=== PATIENT | male | born 2000 | race African-American/Black ===

== ENCOUNTER 2024-12-06 18:13 | Emergency (ER) | payer MEDICAID, SELFPAY ==
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
[2024-12-06 18:19] VITALS: BP 140/80; PULSE 100; O2SAT 100
[2024-12-06 19:13] VITALS: BP 116/69; PULSE 84; RESP 20; TEMP 36.5; O2SAT 99; BMI 30.7
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
[2024-12-07 02:07] VITALS: BP 115/68; PULSE 83; RESP 20; TEMP 36.8; O2SAT 98
[2024-12-07] MEDS: Cyclobenzaprine HCl 10 MG TABLET PO (02:18)
[2024-12-07] MEDS: Ibuprofen 600 MG TABLET PO (02:19)
[2024-12-07 02:21] VITALS: BP 115/68; PULSE 83; RESP 20; TEMP 36.8; O2SAT 98
== END 2024-12-07 02:21 | disposition home or self-care (01) ==
PROVIDERS: Emergency Provider Emergency Medicine
DX: M25.562 Pain in left knee (principal); R07.89 Other chest pain; T14.8XXA Other injury of unspecified body region, initial encounter; V43.52XA Car driver injured in collision with other type car in traffic accident, initial encounter; Y93.89 Activity, other specified; Y92.414 Local residential or business street as the place of occurrence of the external cause; Y99.9 Unspecified external cause status
CPT/HCPCS: 71046; 73562; 99283

== ENCOUNTER → 2024-12-06 19:15 | Outpatient (BNV) | payer SELFPAY | PROVIDERS: Visit Provider Specialist | DX: R07.89 Other chest pain (principal); M25.562 Pain in left knee | CPT/HCPCS: 71046; 73562 ==

== ENCOUNTER 2025-03-04 11:41 | Outpatient (REF) | payer MEDICAID, SELFPAY ==
--- OUTSIDE RECORDS SUMMARY | 2025-03-04 13:21 | XMS_ITS | Encounter Summary ---
Author Organization [employer] Address [address] [place] [address] Care Team Providers Care Access Clinician Name Role Phone Unavailable Primary Care Provider Unavailabl e Encounter Details Date Type Department Care Team (Late st Contact Info) Description 11/07/2024 Lab Requisition [facility] - Main Lab [address] [facility] [employer] [id number] Evans Womack DMD [address] [place] [address] Benign neoplasm of lip Social History Tobacco Use Types Packs/Day Years Used Date Smoking Tobacco: Never Assessed Sex and Gender Information Value Date Recorded Sex Assigned at Not on file Legal Sex Male 5:52 AM EST Gender Identity Not on file Sexual Orientation Not on file documented as of this encounter Plan of Treatment Not on file documented as of this encounter Procedures Procedure Name Priority Date/Time Associated Diagnosis Comments TISSUE EXAM Routine 11/06/2024 Benign neoplasm of lip documented in this encounter Results * Tissue Exam (11/06/2024) Final Diagnosis Lip, Lower, midline-biops y: -LOBULAR CAPILLARY HEMANGIOMA (PYOGENIC GRANULOMA) 11/08/2024 11:18 AM EST [facility] Clinical Information Midline lower lip 1.5 exophytic friable mass:rapid growth,granul jaciel vs CA 11/08/2024 11:18 AM EST [facility] Gross Description A. Lip, Lower, midline: Labeled with the patient's name and information . Received in formalin is a rubbery, lobular, 1.5 x 1.4 x 0.8 cm negrete-red to green polypoid portion of tissue which is inked blue at the base and sections. The cut surfaces are rubbery and hemorrhagic. The specimen is submitted in entirety in two cassettes, two pieces each. TS 11/08/2024 11:18 AM EST [facility] Disclaimer Unless otherwise specified, all tissue is 10% NB formalin fixed and paraffin embedded. 11/08/2024 11:18 AM EST [facility] Tissue Lower lip structure / Unknown 11/06/2024 11/07/2024 6:01 AM EST us Evans Womack DMD LAB PATHOLOGY ORDERABLES Sandra sosa Result [facility]) [facility] [address] [place] [address], documented in this encounter Visit Diagnoses Diagnosis Benign neoplasm of lip documented in this encounter
--- OUTSIDE RECORDS SUMMARY | 2025-03-04 13:21 | XMS_ITS | Clinical Summary ---
Author Organization [employer] [address] [facility] Address [address] [place] [address] Phone Care Team Providers Care Loan Consultant Name Role Phone Unavailable Primary Care Provider Unavailabl e Social History Tobacco Use Types Packs/Day Years Used Date Smoking Tobacco: Never Assessed Sex and Gender Information Value Date Recorded Sex Assigned at Not on file Legal Sex Male 5:52 AM EST Gender Identity Not on file Sexual Orientation Not on file Plan of Treatment Health Maintenance Due Date Last Done Comments HPV Vaccines (1 - Male 3-dos e series) 2017 Meningococcal B Vaccine (1 o f 2 - Standard) 2018 DTaP,Tdap,and Td Vaccines (1 - Tdap) 2021 Hepatitis B Vaccines (1 of 3 - 19+ 3-dose series) 2021 COVID-19 Vaccine (1 - 2023-2 5 season) 2024 Depression Screening 11/07/2024 HIV Screening 11/07/2024 Hepatitis C Screening 11/07/2024 Social Influencers of Health Screening 11/07/2024 Influenza Vaccine (Season Ended) 2025 HIB Vaccines Aged Out No longer eligi ble based on patient's age to complete this topic Hepatitis A Vaccines Aged Out No long er eligible based on patient's age to complete this topic IPV Vaccines Aged Out No longer eligi ble based on patient's age to complete this topic MMR Vaccines Aged Out No longer eligi ble based on patient's age to complete this topic Meningococcal ACWY Vaccine Aged Out N o longer eligible based on patient's age to complete this topic Pneumococcal Vaccine: Pediat rics (0 to 5 Years) and At-Risk Patients (6 to 64 Years) Aged Out No longer eligible b ased on patient's age to complete this topic RSV Immunization Patients Un jemal 20 months Aged Out No longer eligible b ased on patient's age to complete this topic Varicella Vaccines Aged Out No longer eligible based on patient's age to complete this topic Insurance MEDICAID - [place]
--- OUTSIDE RECORDS SUMMARY | 2025-03-04 13:21 | XMS_ITS | Encounter Summary ---
Author Organization [employer] Address [address] [facility] [address] [place] [address] Care Team Providers Care Security Clerk Name Role Phone Unavailable Primary Care Provider Unavailabl e Encounter Details Date Type Department Care Team (Late st Contact Info) Description 11/11/2024 Orders Only [facility] [address] [place] [address] Provider, MD James Social History Tobacco Use Types Packs/Day Years Used Date Smoking Tobacco: Every Day Cigarettes Smokeless Tobacco: Former Alcohol Use Standard Drinks/Week Comments Yes 0 (1 standard drink = 0.6 oz pur e alcohol) Sex and Gender Information Value Date Recorded Sex Assigned at Male 10/15/2024 11:14 AM EST Legal Sex Male 6:59 PM EDT Gender Identity Male 10/15/2024 11:14 AM EST Sexual Orientation Straight 10/15/2024 11 :14 AM EST documented as of this encounter Plan of Treatment Not on file documented as of this encounter Visit Diagnoses Not on filedocumented in this encounter
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
--- OUTSIDE RECORDS SUMMARY | 2025-03-04 13:21 | XMS_ITS | Encounter Summary ---
Author Organization [employer] Address [address] [place] [address] Care Team Providers Care Guidance Secretary Name Role Phone Unavailable Primary Care Provider Unavailabl e Encounter Details Date Type Department Care Team (Latest Contact Info) Description 03/04/2025 Travel Social History Tobacco Use Types Packs/Day Years [...] Diagnoses Not on filedocumented in this encounter Additional Health Concerns Assessment Noted Time PHQ-9 Depression Total Score: 0 03/04/20 25 10:37 AM EDT documented as of this encounter
--- OUTSIDE RECORDS SUMMARY | 2025-03-04 13:21 | XMS_ITS | Encounter Summary ---
Author Organization [employer] Address [address] [place] [address] Care Team Providers Care Savings Counselor Name Role Phone Unavailable Primary Care Provider Unavailabl e Reason for Referral * Consultation (Urgent) - Authorized Specialty Diagnoses / Procedures Referred By Contac t Referred To Contact Optometry Diagnoses Decreased visual acuity Irene Castro DO [address] [place] [address] Phone: tel: fax: [facility] [address] [place] [id number] Phone: tel: fax: Referral ID Status Reason Start Date Expiration Date Visits Requested Visits Authorized [id number] Authorized Consult and Treat 03/04/2025 03/04/2026 1 1 Encounter Details Date Type Department Care Team (Late st Contact Info) Description 03/04/2025 10:45 AM EDT Office Visit [facility] [address] [place] [id number] Irene Castro DO [address] [place] [address] Routine history and physical examination of adult (Primary Dx); Chronic migraine; Seasonal allergic rhinitis, unspecified trigger; Decreased visual acuity; BMI 38.0-38.9,adult; Encounter for immunization Social History Tobacco Use Types Packs/Day Years [...] AM EST documented as of this encounter Last Filed Vital Signs Vital Sign Reading Time Taken Comments Blood Pressure 130/80 03/04/2025 10:32 AM EDT Pulse 84 03/04/2025 10:32 AM EDT Temperature 37.1 ??C (98.7 ??F) 03/04/2025 10:32 AM E DT Respiratory Rate 18 03/04/2025 10:32 AM EDT Oxygen Saturation - - Inhaled Oxygen Concentration - - Weight 120 kg (264 lb 12.8 oz) 03/04/2025 10:32 AM EDT Height 177.2 cm (5' 9.75 ) 03/04/2025 10:32 AM E DT Body Mass Index 38.27 03/04/2025 10:32 AM EDT documented in this encounter Plan of Treatment Scheduled Orders Name Type Priority Associated Diagnoses Orde r Schedule T4, Free Lab Routine Routine history and physical examination of adult Seasonal allergic rhinitis, unspecified trigger BMI 38.0-38.9,adult Expected: 03/04/2025 (Approximate), Expires: 03/04/2026 Lipid Panel, Standard Lab Routine Routine history and physical examination of adult Seasonal allergic rhinitis, unspecified trigger BMI 38.0-38.9,adult Expected: 03/04/2025 (Approximate), Expires: 03/04/2026 TSH Lab Routine Routine history and physical examination of adult Seasonal allergic rhinitis, unspecified trigger BMI 38.0-38.9,adult Expected: 03/04/2025 (Approximate), Expires: 03/04/2026 Vitamin D, 25-Hydroxy, Total, Immunoassay Lab Routine Routine history and physical examination of adult Seasonal allergic rhinitis, unspecified trigger BMI 38.0-38.9,adult Expected: 03/04/2025 (Approximate), Expires: 03/04/2026 Hepatic Function Panel Lab Routine Routine history and physical examination of adult Seasonal allergic rhinitis, unspecified trigger BMI 38.0-38.9,adult Expected: 03/04/2025 (Approximate), Expires: 03/04/2026 Hemoglobin A1c Lab Routine Routine history and physical examination of adult Seasonal allergic rhinitis, unspecified trigger BMI 38.0-38.9,adult Expected: 03/04/2025 (Approximate), Expires: 03/04/2026 CBC Lab Routine Routine history and physical examination of adult Seasonal allergic rhinitis, unspecified trigger BMI 38.0-38.9,adult Expected: 03/04/2025, Expires: 03/04/2026 Basic Metabolic Panel Lab Routine Routine history and physical examination of adult Seasonal allergic rhinitis, unspecified trigger BMI 38.0-38.9,adult Expected: 03/04/2025 (Approximate), Expires: 03/04/2026 Varicella zoster antibody, IgG Lab Routine Routine history and physical examination of adult Seasonal allergic rhinitis, unspecified trigger BMI 38.0-38.9,adult Expected: 03/04/2025 (Approximate), Expires: 03/04/2026 Measles, Mumps, and Rubella (MMR) Antibodies??(IgG) Panel, Immune Status Lab Routine Routine history and physical examination of adult Seasonal allergic rhinitis, unspecified trigger BMI 38.0-38.9,adult Expected: 03/04/2025 (Approximate), Expires: 03/04/2026 Hepatitis B surface antigen, EIA Lab Routine Routine history and physical examination of adult Seasonal allergic rhinitis, unspecified trigger BMI 38.0-38.9,adult Expected: 03/04/2025 (Approximate), Expires: 03/04/2026 Chlamydia/N. Gonorrhoeae RNA, TMA, Urogenitial Microbiology Routine Routine history and physical examination of adult Seasonal allergic rhinitis, unspecified trigger BMI 38.0-38.9,adult Ordered: 03/04/2025 HIV-1/2 Antigen and Antibodies, Fourth Generation, with Reflexes Lab Routine Routine history and physical examination of adult Seasonal allergic rhinitis, unspecified trigger BMI 38.0-38.9,adult Expected: 03/04/2025 (Approximate), Expires: 03/04/2026 Hepatitis C Antibody with Reflex to HCV, RNA, Quantitative, Real-Time PCR Lab Routine Routine history and physical examination of adult Seasonal allergic rhinitis, unspecified trigger BMI 38.0-38.9,adult Expected: 03/04/2025, Expires: 03/04/2026 RPR (Monitor) with Reflex to??Titer Lab Routine Routine history and physical examination of adult Seasonal allergic rhinitis, unspecified trigger BMI 38.0-38.9,adult Expected: 03/04/2025, Expires: 03/04/2026 Hepatitis B Surface Antibody, Qualitative Lab Routine Routine history and physical examination of adult Seasonal allergic rhinitis, unspecified trigger BMI 38.0-38.9,adult Expected: 03/04/2025 (Approximate), Expires: 03/04/2026 Hepatitis A Antibody, Total Lab Routine Routine history and physical examination of adult Seasonal allergic rhinitis, unspecified trigger BMI 38.0-38.9,adult Expected: 03/04/2025 (Approximate), Expires: 03/04/2026 Hepatitis B Core Antibody, Total Lab Routine Routine history and physical examination of adult Seasonal allergic rhinitis, unspecified trigger BMI 38.0-38.9,adult Expected: 03/04/2025 (Approximate), Expires: 03/04/2026 T-SPOT??.TB Lab Routine Routine history and physical examination of adult Seasonal allergic rhinitis, unspecified trigger BMI 38.0-38.9,adult Expected: 03/04/2025 (Approximate), Expires: 03/04/2026 Scheduled Referrals Name Type Priority Associated Diagnoses Orde r Schedule Referral to [facility] Outpatient Referral Urgent Decreased visual acuity Expected: 03/04/2025 (Approximate), Expires: 03/04/2026 documented as of this encounter Visit Diagnoses Diagnosis Routine history and physical examination of adult- Primary Chronic migraine Seasonal allergic rhinitis, unspecified trigger Decreased visual acuity BMI 38.0-38.9,adult Encounter for immunization documented in this encounter Additional Health Concerns Assessment Noted Time PHQ-9 Depression Total Score: 0 03/04/20 25 10:37 AM EDT documented as of this encounter
[2025-03-04 13:49] LABS: Hematocrit 45.6 % (42.0-52.0); Hemoglobin 15.8 g/dl (14.0-18.0); Mean Corpuscular HGB Conc 34.6 g/dl (31.0-36.0); Mean Corpuscular Hemoglobin 29.9 pg (27.0-33.0); Mean Corpuscular Volume 86.4 fL (80.0-98.0); Mean Platelet Volume 11.9 fL (9.4-12.4); Platelet Count 156 X10*3/uL (160-400); Red Blood Count 5.28 X10*6/uL (4.60-5.80); Red Cell Distribution Width 12.5 % (11.0-16.0); White Blood Count 6.3 X10*3/uL (4.8-10.8)
[2025-03-04 13:58] LABS: Estimated Average Glucose 103 mg/dL; Hemoglobin A1C 134.7021 umol/L; Hemoglobin A1c % 5.2 % (<6.0); Total Hemoglobin (HGBA1C) 4067.8431 umol/L
[2025-03-04 14:43] LABS: CT PCR NOT DETECTED (Not Detect.); NG PCR NOT DETECTED (Not Detect.)
[2025-03-04 15:25] LABS: Anion Gap 11 (12-20)
[2025-03-04 15:55] LABS: Alanine Aminotransferase 27 U/L (0-40); Albumin Level 4.6 g/dL (3.5-5.0); Aspartate Amino Transferase 27 U/L (5-37); Bilirubin Direct 0.2 mg/dL (0.0-0.5); Bilirubin Total 0.6 mg/dL (0.0-1.0); Blood Urea Nitrogen 21 mg/dL (9-16); Calcium 9.5 mg/dL (8.4-10.2); Carbon Dioxide 28 mmol/L (22-29); Chloride 107 mmol/L (96-108); Cholesterol 185 mg/dL (<200); Estimated Glomerular Filt Rate > 60; Free T4 (Free Thyroxine) 0.92 ng/dL (0.71-1.85); Glucose Random 83 mg/dL (60-115); HDL Cholesterol 48 mg/dL (>40); LDL Cholesterol Calculated 119 mg/dL (<100); Potassium 4.6 mmol/L (3.3-5.1); Sodium 141 mmol/L (135-145); Thyroid Stimulating Hormone 1.44 uIU/mL (0.32-4.0); Total Protein 7.4 g/dL (6.5-8.0); Triglycerides 91 mg/dL (<150); Vitamin D 25-OH Total 16.3 ng/mL (>30)
[2025-03-04 18:04] LABS: Alkaline Phosphatase 67 U/L (39-117)
[2025-03-05 04:32] LABS: HBS Num1 0.95 mIU/mL (0-7.99); HBc Num1 0.26 S/CO (0.00-0.79); HBsAGNum1 0.41 S/CO (0.00-0.99); HIV AB/AG Nonreactive (Nonreactive); HIV Num 1 0.08 S/CO (0.00-0.99); Hepatitis B Core Antibody Nonreactive (Nonreactive); Hepatitis B Surface Antigen Negative (Negative); ~HepC Num1 0.07 S/CO (0.00-0.79); ~Hepatitis B Surface Antibody NONREACTIVE (Nonreactive); ~Hepatitis C Antibody Nonreactive (Nonreactive)
[2025-03-05 05:52] LABS: Varicella IgG Antibody <1.00 S/CO
[2025-03-05 05:59] LABS: Rubella IgG Antibody 1.65 Index; Rubeola IgG (Measles) <13.50 AU/mL
[2025-03-05 11:29] LABS: RPR Rapid Plasma Reagin NON-REACTIVE (NON-REACTIVE)
[2025-03-06 03:57] LABS: Hepatitis A Antibody IgG Nonreactive (Nonreactive); ~Hepatitis A Antibody IgG 0.24 S/CO (0.00-0.99)
[2025-03-07 12:44] LABS: TS Negative Control Passed; TS Panel A 93; TS Panel B 50; TS Positive Control Passed; TSpotTB Positive (Negative)
== END 2025-03-04 11:42 | disposition home or self-care (01) ==
LOC: HO.HHCL 11:41
PROVIDERS: Visit Provider Family Medicine
DX: Z00.00 Encounter for general adult medical examination without abnormal findings (principal); J30.2 Other seasonal allergic rhinitis; Z68.38 Body mass index [BMI] 38.0-38.9, adult
CPT/HCPCS: 80048; 80061; 80076; 82306; 83036; 84439; 84443; 85027; 86481; 86592; 86704; 86706; 86708; 86735; 86762; 86765; 86787; 86803; 87340; 87389; 87491; 87591

== ENCOUNTER 2025-03-25 08:59 | Outpatient (REF) | payer MEDICAID, SELFPAY ==
--- NOTE | ~2025-03-25 | XR_ITS ---
EXAMINATION: XR CHEST CLINICAL INFORMATION: Positive Tspot COMPARISON: 12/06/2024. TECHNIQUE: 2 views of the chest were obtained. FINDINGS: The cardiac, hilar, and mediastinal contours are normal. The lungs are clear bilaterally. There is no pneumothorax or pleural effusion. There is no focal osseous or soft tissue abnormality. XR/XR chest 2V IMPRESSION: Normal chest. Electronically signed by: Raghav Chilel MD 03/25/2025 09:29 AM EDT
--- OUTSIDE RECORDS SUMMARY | 2025-03-25 09:27 | XMS_ITS | Clinical Summary ---
Author Organization [employer] Address [address] [facility] [address] [place] [address] Care Team Providers Care Melter Caster Name Role Phone Irene Castro DO Primary Care Provider Allergies Active Allergy Reactions Criticality Noted Date Comments Ampicillin 11/06/2024 Aspirin Swelling 03/04/2025 Medications cholecalciferol (Vitamin D-3) 50 MCG (2000 UT) capsule Take 1 capsule (50 mcg) by mouth Once per day. 90 capsule 3 03/05/2025 Active Active Problems Problem Noted Date Diagnosed Date BMI 38.0-38.9,adult 03/04/2025 Allergic rhinitis 03/04/2025 Chronic migraine 03/04/2025 Encounters Date Type Department Care Team Description 03/11/2025 Telephone [facility] [address] [place] [phone] Irene Castro DO C Lab 03/05/2025 Refill [facility] [address] [place] [phone] Irene Castro DO 03/04/2025 10:45 AM EDT Office Visit [facility] [address] [place] [phone] Irene Castro DO Routine history and physical examination of adult (Primary Dx); Chronic migraine; Seasonal allergic rhinitis, unspecified trigger; Decreased visual acuity; BMI 38.0-38.9,adult; Encounter for immunization 03/04/2025 Travel 01/14/2025 Telephone [facility] [address] [place], [place] [phone] Manfred Green MD Results 01/03/2025 9:20 AM EST Office Visit [facility] [address] [place] [phone] Manfred Green MD Sternal pain (Primary Dx) from Last 3 Months Immunizations Immunization Administration Dates Next Due Tdap 03/04/2025 Family [...] 03/04/2025 10:32 AM EDT Plan of Treatment Upcoming Encounters Date Type Department Care Team (Late st Contact Info) Description 05/16/2025 1:00 PM EDT Office Visit C OPTOMETRY [address] [place] [address] Love Limon, OD [address] [place] [address] Health Maintenance Due Date Last Done Comments Dental Oral Exam 2002 Dental Prophylaxis 2002 Dental X-Ray: Bitewings 2002 Dental X-Ray: Full Mouth 2002 SDOH Screening 2002 Disability Screening 2002 Family Planning (PISQ) 2017 HPV Vaccines (1 - Male 3-dos e series) 2017 Meningococcal B Vaccine (1 o f 2 - Standard) 2018 Hepatitis B Vaccines (1 of 3 - 19+ 3-dose series) 2021 Pneumococcal Vaccine: Pediatrics (0 to 5 Years) and At-Risk Patients (6 to 49) Years) (1 of 2 - PCV) 2021 COVID-19 Vaccine (3 - 2023-2 5 season) 2024 04/06/2021, 03/06/2021 Influenza Vaccine (#1) 2024 Tobacco Screening 11/06/2025 11/06/2024 Alcohol/Substance Use Screening 03/04/2026 03/04/2025 Chlamydia and Gonorrhea Screening 03/04/2026 03/04/2025 Depression Screening 03/04/2026 03/04/2025, 03/04/2025 Lipid Panel 03/04/2030 03/04/2025 DTaP/Tdap/Td Vaccines (2 - T d or Tdap) 03/04/2035 03/04/2025 Zoster Vaccines (1 of 2) 2052 RSV Patients and Patients Aged 60 years or older (1 - 1-dose 75+ series) 2077 HIV Screening Completed 03/04/2025 Hepatitis C Screening Completed 03/04/2025 HIB Vaccines Aged Out No longer eligi [...] Procedure Name Priority Date/Time Associated Diagnosis Comments T-SPOT(R).TB Routine 03/04/2025 11:44 AM EDT Routine history and physical examination of adult Seasonal allergic rhinitis, unspecified trigger BMI 38.0-38.9,adult HEPATITIS B CORE AB TOTAL Routine 03/04/2025 11:44 AM EDT Routine history and physical examination of adult Seasonal allergic rhinitis, unspecified trigger BMI 38.0-38.9,adult HEPATITIS A ANTIBODY, TOTAL Routine 03/04/2025 11:44 AM EDT Routine history and physical examination of adult Seasonal allergic rhinitis, unspecified trigger BMI 38.0-38.9,adult HEPATITIS B SURFACE ANTIBODY, QUALITATIVE Routine 03/04/2025 11:44 AM EDT Routine history and physical examination of adult Seasonal allergic rhinitis, unspecified trigger BMI 38.0-38.9,adult RPR (MONITOR) W/REFL TITER Routine 03/04/2025 11:44 AM EDT Routine history and physical examination of adult Seasonal allergic rhinitis, unspecified trigger BMI 38.0-38.9,adult HEPATITIS C AB W/REFL TO HCV RNA, QN, PCR Routine 03/04/2025 11:44 AM EDT Routine history and physical examination of adult Seasonal allergic rhinitis, unspecified trigger BMI 38.0-38.9,adult HIV 1/2 ANTIGEN/ANTIBODY, FOURTH GENERATION W/RFL Routine 03/04/2025 11:44 AM EDT Routine history and physical examination of adult Seasonal allergic rhinitis, unspecified trigger BMI 38.0-38.9,adult HEPATITIS B SURFACE ANTIGEN, EIA Routine 03/04/2025 11:44 AM EDT Routine history and physical examination of adult Seasonal allergic rhinitis, unspecified trigger BMI 38.0-38.9,adult MEASLES, MUMPS, AND RUBELLA (MMR) AB (IGG) PANEL, IMMUNE STATUS Routine 03/04/2025 11:44 AM EDT Routine history and physical examination of adult Seasonal allergic rhinitis, unspecified trigger BMI 38.0-38.9,adult VARICELLA ZOSTER ANTIBODY, IGG Routine 03/04/2025 11:44 AM EDT Routine history and physical examination of adult Seasonal allergic rhinitis, unspecified trigger BMI 38.0-38.9,adult BASIC METABOLIC PANEL Routine 03/04/2025 11:44 AM EDT Routine history and physical examination of adult Seasonal allergic rhinitis, unspecified trigger BMI 38.0-38.9,adult CBC Routine 03/04/2025 11:44 AM EDT Routine history and physical examination of adult Seasonal allergic rhinitis, unspecified trigger BMI 38.0-38.9,adult HEMOGLOBIN A1C Routine 03/04/2025 11:44 AM EDT Routine history and physical examination of adult Seasonal allergic rhinitis, unspecified trigger BMI 38.0-38.9,adult HEPATIC FUNCTION PANEL Routine 03/04/2025 11:44 AM EDT Routine history and physical examination of adult Seasonal allergic rhinitis, unspecified trigger BMI 38.0-38.9,adult VITAMIN D,25-OH,TOTAL,IA Routine 03/04/2025 11:44 AM EDT Routine history and physical examination of adult Seasonal allergic rhinitis, unspecified trigger BMI 38.0-38.9,adult TSH Routine 03/04/2025 11:44 AM EDT Routine history and physical examination of adult Seasonal allergic rhinitis, unspecified trigger BMI 38.0-38.9,adult LIPID PANEL, STANDARD Routine 03/04/2025 11:44 AM EDT Routine history and physical examination of adult Seasonal allergic rhinitis, unspecified trigger BMI 38.0-38.9,adult T4, FREE Routine 03/04/2025 11:44 AM EDT Routine history and physical examination of adult Seasonal allergic rhinitis, unspecified trigger BMI 38.0-38.9,adult CHLAMYDIA/N. GONORRHOEAE RNA, TMA, UROGENITAL Routine 03/04/2025 11:44 AM EDT Routine history and physical examination of adult Seasonal allergic rhinitis, unspecified trigger BMI 38.0-38.9,adult XR STERNUM 2+ VIEWS Routine 01/03/2025 1 0:10 AM EST Sternal pain from Last 3 Months Results * (ABNORMAL) Vitamin D, 25-Hydroxy, Total, Immunoassay (03/04/2025 11:44 AM EDT) Vitamin D 25-OH Total 16.3(L) >30 ng/mL [facility] Comment: Health Based Reference Values*< 20 ??ng/mL ??Wugfimjey51-01 ng/mL ??Insufficient> 30 ??ng/mL ??Sufficient*Sourav ROWELL. N Engl J Med. 2007;357:266-280There is no well-established upper level of normal vitamin Dlevels. Some laboratories use 50 ng/mL as an upper limit ofnormal. However, toxicity is patient-dependent and may occurat any level. Careful correlation with the patient'spresentation is necessary and, if there is concern forvitamin D toxicity, treatment should be consideredirrespective of the serum level.Care must be taken in interpreting Vitamin D results fromdifferent laboratories and methodologies. ??Published datademonstrated that results from patients undergoinghemodialysis may show a negative bias when tested withvarious automated 25-OH vitamin D assays when compared toLC- MS/MS.When testing samples from patients whose predominant form ofVitamin D is Vitamin D2, such as patients receiving VitaminD2 supplementation, results that are subtherapeutic shouldbe confirmed with another method such as LC-MS/MS. Blood Venous blood specimen / Unknown 03/04/2025 11:44 AM EDT 03/04/2025 1:25 PM EDT us Irene Castro DO LAB BLOOD ORDERABLES Final R esult [facility] [address] [place] [phone] * (ABNORMAL) T-SPOT??.TB (03/04/2025 11:44 AM EDT) T Spot TB Positive( A) Negative [facility] Comment: Diagnosing or excluding tuberculosis (TB) disease andassessing the probability of latent TB infection (LTBI)requires a combination of epidemiological, historical,medical and diagnostic findings that should be takeninto consideration when interpreting T-SPOT.TB testresults. A positive test result does not rule in activeTB disease caused by Mycobacterium tuberculosis(M. tuberculosis); active TB disease should beconfirmed by other tests such as sputum smear andculture, PCR, and chest radiography.Uncommonly, a positive T-SPOT.TB result may be due toinfection with other Mycobacterium species includingM. kansasii, M. szulgai, M. gordonae, or M. marinum.Alternative tests would be required if these infectionsare suspected.The T-SPOT.TB test is qualitative and results arereported as positive, borderline, or negative, giventhat the test controls perform as expected. In linewith the Centers for Disease Control and Prevention's2010 recommendation to report quantitative measurementsalongside the qualitative result, the laboratoryprovides spot counts for informational purposes only.The T-SPOT.TB test should not be interpreted as aquantitative test. TS PANEL A 93 [facility] TS PANEL B 50 [facility] Negative Control Passed [facility] Positive Control Passed [facility] Comment:For additional infor ramone, please refer tohttp://education.[employer]/faq/QCZ373(This link is being provided for informational/educational purposes only.)REPORT COMMENT:RECD IN CHANTILLYTHIS TEST WAS PERFORMED AT:[employer]/[id number] [place] [id number] BULL MD,PHD 03/04/2025 11:4 4 AM EDT 03/04/2025 1:25 PM EDT us Irene Matthew DO LAB BLOOD ORDERABLES Final R esult [facility] [address] [place] [phone] [phone] * (ABNORMAL) Measles, Mumps, and Rubella (MMR) Antibodies??(IgG) Panel, Immune Status (03/04/2025 11:44 AM EDT) Mumps Virus IgG Antibody 170.00 AU/mL [facility] Comment:AU/mL Interpretation ------- <9.00 Not consistent with immunity9.00-10.99 Equivocal>10.99 Consistent with immunityThe presence of mumps IgG antibody suggests immunizationor past or current infection with mumps virus. Rubella IgG Antibody 1.65 Index [facility] Comment:Index Interpretation ----- <0.90 Not consistent with immunity 0.90-0.99 Equivocal > or = 1.00 Consistent with immunityThe presence of rubella IgG antibody suggestsimmunization or past or current infection withrubella virus.THIS TEST WAS PERFORMED AT:[employer] [place] [id number] MEHTA MD Rubeola IgG (Measles) <13.50(A ) AU/mL [facility] Comment:AU/mL Interpretation ----- <13.50 Not consistent with evgpofqj05.50-16.49 Equivocal>16.49 Consistent with immunityThe presence of measles IgG suggests immunization orpast or current infection with measles virus.For additional information, please refer tohttp://education.[employer]/faq/HSC064(This link is being provided for informational/educational purposes only.) Blood Venous blood specimen / Unknown 03/04/2025 11:44 AM EDT 03/04/2025 1:25 PM EDT Irene Castro [employer] LAB BLOOD ORDERABLES Final R esult Performing Organization Address City/[facility]/ZIP Co de Phone Number [facility] [address] [place] [phone] * Hepatitis C Antibody with Reflex to HCV, RNA, Quantitative, Real-Time PCR (03/04/2025 11:44 AM EDT) Hepatitis C Antibody Nonreactive Nonreactive [facility] Comment:Antibodies to HCV no t detected; does not exclude early acuteHCV infection. Blood Venous blood specimen / Unknown 03/04/2025 11:44 AM EDT 03/04/2025 1:13 PM EDT Irene Painterhi [employer] LAB BLOOD ORDERABLES Final R esult Performing Organization Address [facility]/ZIP Co de Phone Number [facility] [address] [place] [phone] * Hepatitis A Antibody, Total (03/04/2025 11:44 AM EDT) Hepatitis A Antibody IgG Nonreactive Nonreactive [facility] Blood Venous blood specimen / Unknown 03/04/2025 11:44 AM EDT 03/04/2025 1:25 PM EDT Irene Painterhi [employer] LAB BLOOD ORDERABLES Final R esult Performing Organization Address City/[facility]/ZIP Co de Phone Number [facility] [address] [place] [phone] [phone] * Chlamydia/N. Gonorrhoeae RNA, TMA, Urogenitial (03/04/2025 11:44 AM EDT) CT PCR NOT DETECTED Not Detect. [facility] Comment:A not detected test result does not exclude the possibilityof infection because test results can be affected byimproper specimen collection, concurrent antibiotic therapy,or the number of organisms in the specimen which may bebelow the sensitivity of the test. As with many diagnostictests, results from the Xpert CT/NG assay should beinterpreted in conjunction with other laboratory andclinical data available to the clinician.Xpert CT/NG performance has not been evaluated in patientsless than 14 years of age. The assay should not be used forthe evaluationof suspected sexual abuse or for other medico-legalindications. Additional testing is recommended in anycircumstance when false positive or false negative resultscould lead to adverse medical, social or psychologicalconsequences. NG PCR NOT DETECTED Not Detect. [facility] Comment:A not detected test result does not exclude the possibilityof infection because test results can be affected byimproper specimen collection, concurrent antibiotic therapy,or the number of organisms in the specimen which may bebelow the sensitivity of the test. As with many diagnostictests, results from the Xpert CT/NG assay should beinterpreted in conjunction with other laboratory andclinical data available to the clinician.Xpert CT/NG performance has not been evaluated in patientsless than 14 years of age. The assay should not be used forthe evaluationof suspected sexual abuse or for other medico-legalindications. Additional testing is recommended in anycircumstance when false positive or false negative resultscould lead to adverse medical, social or psychologicalconsequences. Urine Urethral structure / Unknown 03/04/2025 11:44 AM EDT 03/04/2025 1:07 PM EDT Narrative [facility] - 03/04/2025 2:44 PM EDT Urine us Irene Castro DO LAB MICROBIOLOGY - GENERAL O RDERABLES Final Result [facility] [address] [place] [phone] * Hepatitis B surface antigen, EIA (03/04/2025 11:44 AM EDT) Hepatitis B Surface Ag Negative Negative [facility] Blood Venous blood specimen / Unknown 03/04/2025 11:44 AM EDT 03/04/2025 1:13 PM EDT Irene Castro DO LAB BLOOD ORDERABLES Final R esult Performing Organization Address [facility]/ZIP Co de Phone Number [facility] [address] [place] [phone] * Hepatitis B Core Antibody, Total (03/04/2025 11:44 AM EDT) Hepatitis B Core Antibody Nonreactive Nonreactive [facility] Blood Venous blood specimen / Unknown 03/04/2025 11:44 AM EDT 03/04/2025 1:13 PM EDT Irene Castro DO LAB BLOOD ORDERABLES Final R esult Performing Organization Address [facility] de Phone Number [facility] [address] [place] [phone] * RPR (Monitor) with Reflex to??Titer (03/04/2025 11:44 AM EDT) Pathologist [facility] RPR (Monitor) w/Refl Titer NON-REACTI VE NON-REACT KATHY [facility] Comment:THIS TEST WAS PERFOR MED AT:[address] [place] [id number] MEHTA MD Rapid Plasma Reagin Ab Titer TNP [facility] Blood Venous blood specimen / Unknown 03/04/2025 11:44 AM EDT 03/04/2025 1:25 PM EDT Irene Castro DO LAB BLOOD ORDERABLES Final R esult Performing Organization Address [facility] Co de Phone Number [facility] [address] [place] [phone] * HIV-1/2 Antigen and Antibodies, Fourth Generation, with Reflexes (03/04/2025 11:44 AM EDT) Pathologist [facility] HIV AB/AG Nonreactive Nonreactive [facility] Comment:HIV-1 p24 Ag and/or HIV-1/HIV-2 Ab not detected.A test result that is nonreactive does not exclude thepossibility of exposure to or infection with HIV-1 and/orHIV-2. Nonreactive results in this assay for individualswith prior exposure to HIV-1 and/or HIV-2 may be due toantigen and antibody levels that are below the limit ofdetection of this assay.The [employer] HIV Ag/Ab Combo assay result andsupplemental assay results should be interpreted inconjunction with the patient's clinical presentation,history and other laboratory results. If the results areinconsistent with clinical evidence, additional testing issuggested to confirm the result. Blood Venous blood specimen / Unknown 03/04/2025 11:44 AM EDT 03/04/2025 1:13 PM EDT Irene Castro DO LAB BLOOD ORDERABLES Final R esult Performing Organization Address City/[facility]/ZIP Co de Phone Number [facility] [address] [place] [phone] * Hepatitis B Surface Antibody, Qualitative (03/04/2025 11:44 AM EDT) Pathologist [facility] ~Hepatitis B Surface Antibody NONREACTIVE Nonreactive [facility] Comment:Nonreactive: < 8.00 mIU/mL Blood Venous blood specimen / Unknown 03/04/2025 11:44 AM EDT 03/04/2025 1:13 PM EDT Irene Castro [employer] LAB BLOOD ORDERABLES Final R esult Performing Organization Address City/[facility]/ZIP Co de Phone Number [facility] [address] [place] [phone] * (ABNORMAL) CBC (03/04/2025 11:44 AM EDT) Pathologist [facility] White Blood Count 6.3 4.8 - 10.8 X10*3/uL [facility] Red Blood Count 5.28 4.60 - 5.80 X10*6/uL [facility] Hemoglobin 15.8 14.0 - 18.0 g/dl [facility] Hematocrit 45.6 42.0 - 52.0 % [facility] Mean Corpuscular Volume 86.4 80.0 - 98.0 fL [facility] Mean Corpuscular Hemoglobin 29.9 27.0 - 33.0 pg [facility] Mean Corpuscular HGB Conc 34.6 31.0 - 36.0 g/dl [facility] Red Cell Distribution Width 12.5 11.0 - 16.0 % [facility] Platelet Count 156(L) 160 - 400 X10*3/uL [facility] Mean Platelet Volume 11.9 9.4 - 12.4 fL [facility] NRBC Pct Auto 0.0 0.0 - 0.2 /100WBC [facility] NRBC Abs Auto 0.000 0.0 - 0.012 X10*3/uL [facility] Blood Venous blood specimen / Unknown 03/04/2025 11:44 AM EDT 03/04/2025 1:13 PM EDT us Irene Castro DO LAB BLOOD ORDERABLES Final R esult [facility] [address] [place] [phone] * (ABNORMAL) Varicella zoster antibody, IgG (03/04/2025 11:44 AM EDT) Pathologist [facility] Varicella IgG Antibody <1.00(A) S/CO [facility] Comment:Signal to Cut-off S/ CO Interpretation --------- <1.00 Negative - Antibody not detected > or = 1.00 Positive - Antibody detected A positive result indicates that the patient has antibody to VZV but does not differentiate between an active or past infection. The clinical diagnosis must be interpreted in conjunction with the clinical signs and symptoms of the patient. This assay reliably measures immunity due to previous infection but may not be sensitive enough to detect antibodies induced by vaccination. Thus, a negative result in a vaccinated individual does not necessarily indicate susceptibility to VZV infection. A more sensitive test for vaccination-induced immunity is Varicella Zoster Virus Antibody Immunity Screen, ACIF.THIS TEST WAS PERFORMED AT:[address] [place] [phone] MEHTA MD Blood Venous blood specimen / Unknown 03/04/2025 11:44 AM EDT 03/04/2025 1:25 PM EDT Irene Castro LAB BLOOD ORDERABLES Final R esult Performing Organization Address City/[facility]/ZIP Co de Phone Number [facility] [address] [place] [phone] * TSH (03/04/2025 11:44 AM EDT) Thyroid Stimulating Hormone 1.44 0.32 - 4.0 uIU/mL [facility] Comment:TSH 3rd Generation ( [employer]) Blood Venous blood specimen / Unknown 03/04/2025 11:44 AM EDT 03/04/2025 1:25 PM EDT Irene Castro DO LAB BLOOD ORDERABLES Final R esult Performing Organization Address City/[facility]/ZIP Co de Phone Number [facility] [address] [place] [phone] * T4, Free (03/04/2025 11:44 AM EDT) Free T4 (Free Thyroxine) 0.92 0.71 - 1.85 ng/dL [facility] Blood Venous blood specimen / Unknown 03/04/2025 11:44 AM EDT 03/04/2025 1:25 PM EDT Irene Castro DO LAB BLOOD ORDERABLES Final R esult Performing Organization Address [facility] Co de Phone Number [facility] [address] [place] [phone] * Hemoglobin A1c (03/04/2025 11:44 AM EDT) Hemoglobin A1c 5.2 <6.0 % [facility] Comment:Hemoglobin A1C Refer ence Range Adults: 4.8 - 6.0 % Non diabetic: < 6.0 % Goal: < 7.0 %Additional Action Suggested: > 8.0 %Note: Hemoglobin A1c results are invalid for patients with abnormal amounts of HbF. Blood transfusions may impact the HbA1c concentration in the patient sample. Estimated Average Glucose 103 mg/dL [facility] Comment:eAG = Estimated ave rage glucose which is %A1C expressed asaverage glucose, using the formula of the K2H-VgovardCesqyct Glucose study (ADAG), Diabetes Care, Vol.31,#8,May. 2007 Blood Venous blood specimen / Unknown 03/04/2025 11:44 AM EDT 03/04/2025 1:13 PM EDT Irene Castro DO LAB BLOOD ORDERABLES Final R esult Performing Organization Address City/[facility]/ZIP Co de Phone Number [facility] [address] [place] [phone] * Hepatic Function Panel (03/04/2025 11:44 AM EDT) Bilirubin, Total 0.6 0.0 - 1.0 mg/dL [facility] Bilirubin, Direct 0.2 0.0 - 0.5 mg/dL [facility] Aspartate Amino Transferase 27 5 - 37 U/L [facility] Alanine Aminotransferase 27 0 - 40 U/L [facility] Total Protein 7.4 6.5 - 8.0 g/dL [facility] Albumin Level 4.6 3.5 - 5.0 g/dL [facility] Alkaline Phosphatase 67 39 - 117 U/L [facility] Blood Venous blood specimen / Unknown 03/04/2025 11:44 AM EDT 03/04/2025 1:25 PM EDT us Irene Castro DO LAB BLOOD ORDERABLES Final R esult Performing Organization Address [facility] Co de Phone Number [facility] [address] [place] [phone] * (ABNORMAL) Lipid Panel, Standard (03/04/2025 11:44 AM EDT) Triglycerides 91 <150 mg/dL [facility] Comment:Desirable Triglyceri de: less than 150 mg/dLBorderline High Triglyceride 150-199 mg/dLHigh Triglyceride: 200-499 mg/dLVery High Triglyceride: greater than or equal to 5OO mg/dL Cholesterol 185 <200 mg/dL [facility] Comment:Desirable Cholestero l: less than 200 mg/dLBorderline High Cholesterol: 200-239 mg/dLHigh Cholesterol: greater than 239 mg/dL LDL Cholesterol Calculated 119(H) <100 mg/dL [facility] Comment:Desirable LDL: less than 100 mg/dLNear Optimal/Above Optimal LDL: 110- 129 mg/dLBorderline High LDL: 130-159 mg/dLHigh LDL: 160-189 mg/dLVery High LDL: greater than or equal to 190 mg/dL HDL Cholesterol 48 >40 mg/dL [facility] Comment:Desirable HDL: great er than 40 mg/dL Note: This HDL assay may give artificially low results in patients with liver disease. Blood Venous blood specimen / Unknown 03/04/2025 11:44 AM EDT 03/04/2025 1:25 PM EDT us Irene Castro DO LAB BLOOD ORDERABLES Final R esult Performing Organization Address City/[facility] Co de Phone Number [facility] [address] [place] [address] [phone] * (ABNORMAL) Basic Metabolic Panel (03/04/2025 11:44 AM EDT) Sodium 141 135 - 145 mmol/L [facility] Potassium 4.6 3.3 - 5.1 mmol/L [facility] Chloride 107 96 - 108 mmol/L [facility] Carbon Dioxide 28 22 - 29 mmol/L [facility] Anion Gap 11(L) 12 - 20 [facility] Urea Nitrogen (BUN) 21(H) 9 - 16 mg/dL [facility] Creatinine, Serum 0.79 0.5 - 1.4 mg/dL [facility] Estimated Glomerular Filt Rate >60 [facility] Comment:Chronic Kidney Disea se: Estimated GFR < 60 mL/min/1.84b4Dpthsb Kidney Disease: Estimated GFR < 15 mL/min/1.73m2 Glucose 83 60 - 115 mg/dL [facility] Calcium 9.5 8.4 - 10.2 mg/dL [facility] Blood Venous blood specimen / Unknown 03/04/2025 11:44 AM EDT 03/04/2025 1:25 PM EDT us Irene Castro DO LAB BLOOD ORDERABLES Final R esult [facility] [address] [place] [address] [phone] * XR Sternum 2+ Views (01/03/2025 10:10 AM EST) Anatomical Region Laterality Modality Body Radiographic Sonal ging 01/03/2025 10:1 0 AM EST Narrative 01/03/2025 11:32 AM EST ?[facility] ?[address] ?[place] [address] ?XRay Report ? Signed ? Patient: [place] Alcazar,Alexey Prince ? MR#: [id number] ? : 2000 ?Acct:[id number] ? Age/Sex: 24 / M ?ADM Date: 03/07/25 ? Loc: HO.HHCX ? Attending Dr: Manfred Green MD ? Ordering Physician: Manfred Green MD ?? Date of Service: 01/03/25 ?? Procedure(s): XR sternum min 2V ?? Accession Number(s): [id number] ? cc: Manfred Green MD ? EXAMINATION: [...] DD/ 1010 ? TD/TT: 01/03/25 1020 ? Marketing Agent: ? Procedure Note Corry, Image - 01/14/2025 [place] [address] XRay Report Signed Patient: Alexey Bautista Junior MR#: [id number] : 2000Acct:[id number] Age/Sex: Date: 01/03/25 Loc: HO.HHCX Attending Dr: Manfred Green MD Ordering Physician: Manfred Green MD Date of Service: 01/03/25 Procedure(s): XR sternum min 2V Accession Number(s): [id number] cc: Manfred Green MD EXAMINATION: XR STERNUM [...] 01/03/25 1129 DD/ 1010 TD/TT: 01/03/25 1020 Marketing Agent: Manfred Green MD IMG XR PROCEDURES Edited Result - Final from Last 3 Months Insurance [facility] F[employer] DENTAL-[facility] [employer] LIMITED ADULT DENTAL - HSN FULL (MEDICAID) Care Teams Melter Caster Relationship Specialty Start Date End Date Irene Castro DO [address] [place] [address] PCP - General Family Medicine 03/04/25
== END 2025-03-25 09:00 | disposition home or self-care (01) ==
LOC: HO.HHCX 08:59
PROVIDERS: Visit Provider Family Medicine
DX: R76.11 Nonspecific reaction to tuberculin skin test without active tuberculosis (principal)
CPT/HCPCS: 71046

== ENCOUNTER → 2025-03-25 09:02 | Outpatient (BNV) | payer MEDICAID, SELFPAY | PROVIDERS: Visit Provider Radiology Diagnostic Radiology | DX: R76.12 Nonspecific reaction to cell mediated immunity measurement of gamma interferon antigen response without active tuberculosis (principal) | CPT/HCPCS: 71046 ==